=== PATIENT | female | born 1945 | race Caucasian/White ===

== ENCOUNTER 2017-07-01 22:21 | Emergency (ER) | payer MEDICARE, SELFPAY ==
[2017-07-01 22:35] VITALS: BP 191/100; PULSE 82; RESP 18; TEMP 36.4; O2SAT 97; BMI 27.8
[2017-07-01 22:59] LABS: Basophils # 0.1 K/mm3 (0-0.2); Basophils % 0.9 % (0.1-2.0); Eosinophils # 1.2 K/mm3 (0.0-0.4); Hematocrit 43.7 % (37.0-47.0); Hemoglobin 14.4 g/dL (12.2-16.2); Lymphocytes # 4.5 K/mm3 (0.7-4.5); Mean Corpuscular Hemoglobin 30.2 pg (27.0-31.2); Mean Corpuscular Volume 91.5 fl (81-99); Mean Platelet Volume 8.1 fl (7.4-10.4); Monocytes # 0.5 K/mm3 (0.1-1.0); Monocytes % 4.5 % (1.7-9.3); Neutrophils # 4.4 K/mm3 (1.8-7.8); Neutrophils % 41.6 % (37.0-80.0); Platelet Count 334 K/mm3 (142-424); Red Blood Count 4.78 M/mm3 (4.20-5.40); Red Cell Distribution Width 12.4 % (11.5-17.5); White Blood Count 10.7 K/mm3 (4.8-10.8)
--- NOTE | 2017-07-01 23:03 | HMH.EDHA ---
ED Disposition Clinical Impression: Headache Qualifiers: Headache type: unspecified Headache chronicity pattern: acute headache Intractability: not intractable Qualified Code(s): R51 - Headache Disposition: Home, Self-Care Condition on Discharge: Good Instructions: DI for Headache Additional Instructions: see pcp for follow up Referrals: Duglas Love [Primary Care Provider] - - Critical Care Critical Care Time: No Attestation: On 07/01/17, the high probability of a clinically significant, sudden or life threatening deterioration of the following system(s) required my full and direct attention, intervention and personal management. The time I documented below is in addition to time spent performing reported procedures but includes the following listed in this critical care notation. Medical Decision Making - Medical Records Medical records reviewed: Yes: I reviewed the patient's medical records. Vital Signs: 07/01/17 22:35 07/01/17 23:06 07/01/17 23:37 Temperature 97.6 F Temperature Source Oral Pulse Rate [Right Brachial] 82 67 65 Respiratory Rate 18 18 18 Blood Pressure [Right Arm] 191/100 181/93 180/84 Blood Pressure Mean [Right Arm] 130 122 116 Blood Pressure Source [Right Arm] Automatic Cuff Automatic Cuff Automatic Cuff Blood Pressure Position [Right Arm] Supine Supine Supine 02 Sat by Pulse Oximetry 97 97 96 Oxygen Delivery Method Room Air Room Air Room Air 07/02/17 00:29 07/02/17 00:50 Temperature Temperature Source Pulse Rate [Right Brachial] 66 Respiratory Rate 16 Blood Pressure [Right Arm] 117/67 105/66 Blood Pressure Mean [Right Arm] 83 79 Blood Pressure Source [Right Arm] Automatic Cuff Automatic Cuff Blood Pressure Position [Right Arm] Supine Supine 02 Sat by Pulse Oximetry 95 Oxygen Delivery Method Room Air - Lab Data Lab Results 07/01/17 22:45: WBC 10.7, RBC 4.78, Hgb 14.4, Hct 43.7, MCV 91.5, MCH 30.2, MCHC 33.0, RDW 12.4, Plt Count 334, MPV 8.1, Neut % (Auto) 41.6, Lymph % (Auto) 42.0, [place] % (Auto) 4.5, Eos % (Auto) 11.0, Baso % (Auto) 0.9, Neut # (Auto) 4.4, Lymph # (Auto) 4.5, [place] # (Auto) 0.5, Eos # (Auto) 1.2 H, Baso # (Auto) 0.1 07/01/17 22:45: Sodium 139, Potassium 3.9, Chloride 102, Carbon Dioxide 26, Anion Gap 14.9, BUN 10, Creatinine 0.69, Estimated Creat Clear 58, Estimated GFR 83, Est GFR ( Amer) 101, Glucose 116 H, Calcium 9.3, Total Bilirubin 0.3, AST 13 L, ALT 26, Alkaline Phosphatase 129 H, Total Protein 7.7, Albumin 4.0, Globulin 3.7 H, Albumin/Globulin Ratio 1.1 07/01/17 22:45: Total Creatine Kinase 44, CK-MB (CK-2) < 0.5, CK-MB (CK-2) Rel Index 1.1, Troponin I < 0.02 Result diagrams: 07/01/17 22:45 07/01/17 22:45 Orders (Tests/Meds): ED MEDICATIONS Discontinued Medications Generic Name Dose Route Start Last Admin Trade Name Darcy PRN Reason Stop Dose Admin Clonidine HCl 0.1 mg 07/01/17 23:05 07/01/17 23:08 Clonidine 0.1mg Tablet PO 07/01/17 23:06 0.1 mg ONCE ONE Administration ORDERS Category Date Time Status ECG Request by /David Stat Y 07/01/17 22:41 Ordered - Killian Inquiry Pt receiving controlled substance: No Headache HPI - General Chief Complaint: Headache Stated Complaint: High blood pressure,headache Time Seen by Provider: 07/01/17 23:03 Mode of Arrival: Family Vehicle Source of Information: Patient, Relative, Medical Record Limitations: No Limitations Description of Symptoms (Recalled from ER Triage Doc. by RN): C/O HEADACHE X SEVERAL WEEKS AND HTN. STATSE SHE TOOK METOPROLOL XL 25 MG PO X 3 TONIGHT IN ATTEMPT TO BRING BLOOD PRESSURE DOWN - History of Present Illness HPI Narrative: elevated bp with tay at home Complaint: headache Onset (ago): hour(s) Onset description: gradual Location: temporal Severity: moderate Quality: aching Relieving factors: nothing Exacerbating factors: none Context: occurred at rest Associated symptoms: none - Related Data Home Medications
[2017-07-01 23:06] VITALS: BP 181/93; PULSE 67; RESP 18; O2SAT 97
--- NOTE | 2017-07-01 23:06 | ED_ITS ---
ED Disposition Clinical Impression: Headache Qualifiers: Headache type: unspecified Headache chronicity pattern: acute headache Intractability: not intractable Qualified Code(s): R51 - Headache Disposition: Home, Self-Care Condition on Discharge: Good Instructions: DI for Headache Additional Instructions: see pcp for follow up Referrals: Duglas Love [Primary Care Provider] - - Critical Care Critical Care Time: No Attestation: On 07/01/17, the high probability of a clinically significant, sudden or life threatening deterioration of the following system(s) required my full and direct attention, intervention and personal management. The time I documented below is in addition to time spent performing reported procedures but includes the following listed in this critical care notation. Medical Decision Making - Medical Records Medical records reviewed: Yes: I reviewed the patient's medical records. Vital Signs: 07/01/17 22:35 07/01/17 23:06 07/01/17 23:37 Temperature 97.6 F Temperature Source Oral Pulse Rate [Right Brachial] 82 67 65 Respiratory Rate 18 18 18 Blood Pressure [Right Arm] 191/100 181/93 180/84 Blood Pressure Mean [Right Arm] 130 122 116 Blood Pressure Source [Right Arm] Automatic Cuff Automatic Cuff Automatic Cuff Blood Pressure Position [Right Arm] Supine Supine Supine 02 Sat by Pulse Oximetry 97 97 96 Oxygen Delivery Method Room Air Room Air Room Air 07/02/17 00:29 07/02/17 00:50 Temperature Temperature Source Pulse Rate [Right Brachial] 66 Respiratory Rate 16 Blood Pressure [Right Arm] 117/67 105/66 Blood Pressure Mean [Right Arm] 83 79 Blood Pressure Source [Right Arm] Automatic Cuff Automatic Cuff Blood Pressure Position [Right Arm] Supine Supine 02 Sat by Pulse Oximetry 95 Oxygen Delivery Method Room Air - Lab Data Lab Results 07/01/17 22:45: WBC 10.7, RBC 4.78, Hgb 14.4, Hct 43.7, MCV 91.5, MCH 30.2, MCHC 33.0, RDW 12.4, Plt Count 334, MPV 8.1, Neut % (Auto) 41.6, Lymph % (Auto) 42.0, [place] % (Auto) 4.5, Eos % (Auto) 11.0, Baso % (Auto) 0.9, Neut # (Auto) 4.4 , Lymph # (Auto) 4.5, [place] # (Auto) 0.5, Eos # (Auto) 1.2 H, Baso # (Auto) 0.1 07/01/17 22:45: Sodium 139, Potassium 3.9, Chloride 102, Carbon Dioxide 26, Anion Gap 14.9, BUN 10, Creatinine 0.69, Estimated Creat Clear 58, Estimated GFR 83, Est GFR ( Amer) 101, Glucose 116 H, Calcium 9.3, Total Bilirubin 0.3, AST 13 L, ALT 26, Alkaline Phosphatase 129 H, Total Protein 7.7, Albumin 4.0, Globulin 3.7 H, Albumin/Globulin Ratio 1.1 07/01/17 22:45: Total Creatine Kinase 44, CK-MB (CK-2) < 0.5, CK-MB (CK-2) Rel Index 1.1, Troponin I < 0.02 Result diagrams: 07/01/17 22:45 07/01/17 22:45 Orders (Tests/Meds): ED MEDICATIONS Discontinued Medications Generic Name Dose Route Start Last Admin Trade Name Darcy PRN Reason Stop Dose Admin Clonidine HCl 0.1 mg 07/01/17 23:05 07/01/17 23:08 Clonidine 0.1mg Tablet PO 07/01/17 23:06 0.1 mg ONCE ONE Administration ORDERS Category Date Time Status ECG Request by /David Stat Y 07/01/17 22:41 Ordered - Killian Inquiry Pt receiving controlled substance: No Headache HPI - General Chief Complaint: Headache Stated Complaint: High blood pressure,headache
[2017-07-01 23:17] LABS: Alanine Aminotransferase 26 U/L (12-78); Albumin/Globulin Ratio 1.1 (1.1-1.8); Alkaline Phosphatase 129 U/L (46-116); Anion Gap 14.9 mEq/L (5-15); Aspartate Amino Transferase 13 U/L (15-37); Bilirubin,Total 0.3 mg/dL (0.2-1.0); Blood Urea Nitrogen 10 mg/dL (7-18); Carbon Dioxide 26 mmol/L (21.0-32.0); Chloride 102 mmol/L (98-107); Creatinine Clearance Estimated 58 mL/min (0-300); Creatinine,Serum 0.69 mg/dL (0.55-1.02); Estimated Glomerular Filt Rate 83 ml/min (>60); GFR (African American) 101 ML/MIN (>60); Globulin 3.7 gm/dl (1.3-3.2); Glucose 116 mg/dL (74-106); Potassium 3.9 mmoL/L (3.5-5.1); Sodium 139 mmol/L (136-145); Total Protein,Serum 7.7 gm/dL (6.4-8.2)
[2017-07-01 23:20] LABS: Calcium 9.3 mg/dL (8.5-10.1)
[2017-07-01 23:26] LABS: Creatine Kinase 44 U/L (26-192); Troponin I < 0.02 ng/ml (0.00-0.06)
[2017-07-01 23:27] LABS: CKMB Relative Index 1.1 U/L (0-4.0); Creatine Kinase MB < 0.5 mg/ml (0.0-3.6)
[2017-07-01 23:37] VITALS: BP 180/84; PULSE 65; RESP 18; O2SAT 96
[2017-07-02 00:29] VITALS: BP 117/67
[2017-07-02 00:50] VITALS: BP 105/66; PULSE 66; RESP 16; O2SAT 95
[2017-07-02 01:16] VITALS: BP 106/69; PULSE 66; RESP 16; O2SAT 96
[2017-07-02 01:20] VITALS: BP 106/69; PULSE 66; RESP 16; O2SAT 96
== END 2017-07-02 01:25 | disposition home or self-care (01) ==
PROVIDERS: Emergency Provider Emergency Medicine; Family Provider Family Medicine; PCP Internal Medicine
DX: R51 Headache (principal); Z79.899 Other long term (current) drug therapy; Z88.5 Allergy status to narcotic agent
CPT/HCPCS: 80053; 82550; 82553; 84484; 85025; 93005; 93041; 99284

== ENCOUNTER 2021-09-16 13:27 | Outpatient (RCR) | payer MEDICARE, SELFPAY | END 2021-11-14 14:30 | disposition home or self-care (01) | LOC: PT 13:27 | PROVIDERS: Visit Provider Clinical Nurse Specialist Adult Health | DX: I25.10 Atherosclerotic heart disease of native coronary artery without angina pectoris (principal); R94.39 Abnormal result of other cardiovascular function study | CPT/HCPCS: 93798 ==

== ENCOUNTER 2021-10-29 11:38 | Emergency (ER) | payer MEDICARE, SELFPAY ==
--- NOTE | 2021-10-29 11:36 | ECG_ITS ---
APPROVED REPORT Exam: Resting ECG HR:79 bpm ECG Measurements Heart Rate 79 AXES IN 180 P 61 QRSd 90 QRS 45 QT 379 T 73 QTc 414 Conclusion SINUS RHYTHM NORMAL ECG UNCONFIRMED REPORT Electronically signed by : Cheikh Bryant MD 10/31/2021 10:33:07
[2021-10-29 11:38] VITALS: BP 151/75; PULSE 79; RESP 18; TEMP 36.6; O2SAT 96; BMI 26.1
--- NOTE | 2021-10-29 11:44 | PC.NURSE ---
ED MD at
--- NOTE | 2021-10-29 11:45 | PC.NURSE ---
HARVINDER STILL at
--- NOTE | 2021-10-29 11:50 | XR_ITS ---
PROCEDURE INFORMATION: Exam: XR Chest Exam date and time: 10/29/2021 12:23 PM Age: 76 years old Clinical indication: Pain; Chest pressure; Additional info: Chest pain TECHNIQUE: Imaging protocol: XR of the chest. Views: 1 view. COMPARISON: No relevant prior studies available. FINDINGS: Lungs: Emphysematous change and interstitial prominence. Pleural spaces: No pleural effusion. Heart/Mediastinum: Normal configuration of the heart. Bones/joints: Degenerative change. IMPRESSION: Emphysematous change and interstitial prominence.
[2021-10-29 11:53] LABS: MANUAL DIFFERENTIAL MANUAL DIFFERENTIAL (MANUAL DIFF)
[2021-10-29 12:00] VITALS: BP 135/65; PULSE 74; RESP 14; O2SAT 98
[2021-10-29 12:03] LABS: Basophils # 0.2 K/mm3 (0-0.2); Eosinophils # 0.9 K/mm3 (0.0-0.4); Eosinophils % 9.9 % (0.1-12.0); Hematocrit 38.4 % (37.0-47.0); Hemoglobin 12.7 g/dL (12.2-16.2); Lymphocytes # 2.2 K/mm3 (0.7-4.5); Lymphocytes % 24.1 % (10-50); Mean Corpuscular Hemoglobin 31.6 pg (27.0-31.2); Mean Corpuscular Volume 95.6 fl (81-99); Mean Platelet Volume 7.9 fl (7.4-10.4); Monocytes # 0.4 K/mm3 (0.1-1.0); Monocytes % 4.6 % (1.7-9.3); Neutrophils # 5.4 K/mm3 (1.8-7.8); Neutrophils % 59.4 % (37.0-80.0); Platelet Count 325 K/mm3 (142-424); Red Blood Count 4.02 M/mm3 (4.20-5.40); Red Cell Distribution Width 13.1 % (11.5-17.5); White Blood Count 9.1 K/mm3 (4.8-10.8)
[2021-10-29 12:12] LABS: Activated Partial Thrombo Time 23.6 seconds (22.8-30.6); INR 0.92 (0.9-1.1); Prothrombin Time 10.5 seconds (10.1-12.5)
[2021-10-29 12:15] LABS: Anion Gap 13.2 mEq/L (5-15); Blood Urea Nitrogen 17 mg/dl (7-17); Calcium 8.8 mg/dl (8.4-10.2); Carbon Dioxide 26 mmol/L (22.0-30.0); Chloride 101 mmol/L (98-107); Creatinine Clearance Estimated 51 mL/min (50-200); Estimated Glomerular Filt Rate 70 ml/min (>60); GFR (African American) 84 ML/MIN (>60); Glucose 202 mg/dl (74-100); Potassium 4.2 mmoL/L (3.5-5.1); Sodium 136 mmol/L (136-145)
[2021-10-29 12:15] LABS: Alanine Aminotransferase 25 U/L (12-78); Alkaline Phosphatase 95 U/L (38-126); Aspartate Amino Transferase 42 U/L (14-36); Bilirubin,Unconjugated 0.3 mg/dL (0.0-1.1); Total Protein,Serum 6.9 g/dl (6.3-8.2)
[2021-10-29 12:17] LABS: Bilirubin,Total < 0.1 mg/dl (0.2-1.3)
[2021-10-29 12:30] VITALS: BP 149/73; PULSE 76; RESP 14; O2SAT 95
[2021-10-29 12:30] LABS: Eosinophils % 8 % (0-3); Lymphocytes % 30 % (10-50); Monocytes % 5 % (2-9); Neutrophils % 57 % (42-76); Platelet Estimate Normal; RBC Morphology Normal; Total Cells Counted 100
--- NOTE | 2021-10-29 12:38 | PC.NURSE ---
contacted lab to check on status of troponin, spoke with Brii. States it was not received, reports she will get is running now, will be approx 20 minutes
[2021-10-29 12:51] LABS: Bilirubin,Direct 0.1 mg/dl (0.0-0.4); Bilirubin,Indirect 0.2 mg/dL (0.0-0.9)
[2021-10-29 13:00] VITALS: BP 153/75; PULSE 74; RESP 13; O2SAT 93
[2021-10-29 13:03] LABS: Troponin I < 0.01 ng/ml (0.00-0.034)
[2021-10-29 13:30] VITALS: BP 155/79; PULSE 74; RESP 16; O2SAT 94
--- NOTE | 2021-10-29 14:06 | HMH.EDCP ---
ED Disposition Clinical Impression: Chest pain Disposition: Home, Self-Care Condition on Discharge: Good Instructions: DI for Atypical Chest Pain Additional Instructions: Please follow-up with your pipe line walker in 2 to 3 days. You will require stress test and repeat ECHO if symptoms persist. Please return if your symptoms recur. Please also return for difficulty breathing, reoccurring chest pain or any other concerns. Referrals: Provider,Referral, [Primary Care Provider] - - Critical Care Critical Care Time: No Attestation: On 10/29/21, the high probability of a clinically significant, sudden or life threatening deterioration of the following system(s) required my full and direct attention, intervention and personal management. The time I documented below is in addition to time spent performing reported procedures but includes the following listed in this critical care notation. Medical Decision Making - Medical Records Medical records reviewed: Yes: I reviewed the patient's medical records. - Killian Inquiry Pt receiving controlled substance: No Vital Signs: 10/29/21 11:38 10/29/21 12:00 10/29/21 12:30 Temperature 97.9 F Temperature Source Oral Pulse Rate 74 76 Pulse Rate [Right Radial] 79 Respiratory Rate 18 14 14 Blood Pressure 135/65 149/73 H Blood Pressure [Right Arm] 151/75 H Blood Pressure Mean [Right Arm] 100 Blood Pressure Source Automatic Cuff Automatic Cuff Blood Pressure Source [Right Arm] Automatic Cuff Blood Pressure Position Sitting Sitting Blood Pressure Position [Right Arm] Sitting 02 Sat by Pulse Oximetry 96 98 95 Oxygen Delivery Method Room Air Room Air Room Air 10/29/21 13:00 10/29/21 13:30 10/29/21 15:01 Temperature 97.9 F Temperature Source Oral Pulse Rate 74 74 71 Pulse Rate [Right Radial] Respiratory Rate 13 16 17 Blood Pressure 153/75 H 155/79 H 154/80 H Blood Pressure [Right Arm] Blood Pressure Mean [Right Arm] Blood Pressure Source Automatic Cuff Automatic Cuff Blood Pressure Source [Right Arm] Blood Pressure Position Sitting Sitting Blood Pressure Position [Right Arm] 02 Sat by Pulse Oximetry 93 L 94 L Oxygen Delivery Method Room Air Room Air Room Air - Lab Data Lab results reviewed: Yes: I reviewed the patient's lab results. Lab Results 10/29/21 11:41: WBC 9.1, RBC 4.02 L, Hgb 12.7, Hct 38.4, MCV 95.6, MCH 31.6 H, MCHC 33.0, RDW 13.1, Plt Count 325, MPV 7.9, Neut % (Auto) 59.4, Lymph % (Auto) 24.1, [place] % (Auto) 4.6, Eos % (Auto) 9.9, Baso % (Auto) 2.0, Neut # (Auto) 5.4, Lymph # (Auto) 2.2, [place] # (Auto) 0.4, Eos # (Auto) 0.9 H, Baso # (Auto) 0.2, Total Counted 100, Neutrophils % (Manual) 57, Lymphocytes % (Manual) 30, Monocytes % (Manual) 5, Eosinophils % (Manual) 8 H, Platelet Estimate Normal, RBC Morphology Normal 10/29/21 11:41: PT 10.5, INR 0.92, APTT 23.6 10/29/21 11:41: Troponin I < 0.01 10/29/21 11:41: Total Bilirubin < 0.1 L, Direct Bilirubin 0.1, Conjugated Bilirubin 0.0, Indirect Bilirubin 0.2, Unconjugated Bilirubin 0.3, AST 42 H, ALT 25, Alkaline Phosphatase 95, Total Protein 6.9, Albumin 4.0 10/29/21 11:51: Sodium 136, Potassium 4.2, Chloride 101, Carbon Dioxide 26, Anion Gap 13.2, BUN 17, Creatinine 0.80, Estimated Creat Clear 51, Estimated GFR 70, Est GFR ( Amer) 84, Glucose 202 H, Calcium 8.8 Result diagrams: 10/29/21 11:41 10/29/21 11:51 Orders (Tests/Meds): ED MEDICATIONS Discontinued Medications Generic Name Dose Route Start Last Admin Trade Name Freq PRN Reason Stop Dose Admin Sodium Chloride 10 ml 10/29/21 11:51 Sodium Chloride 0.9% 10ml Flush Syringe IV 11/28/21 11:50 NEEDED PRN Maintain IV Site Medical Decision Narrative: Mrs. Paris Anderson is a 76-year-old female with past medical history for CAD s/p PCI stents (08/2021), HTN presenting to the emergency department for chest pain which has resolved prior to arrival. Patient taken aspirin prior to arrival. Beds
[2021-10-29 15:01] VITALS: BP 154/80; PULSE 71; RESP 17; TEMP 36.6; O2SAT 97
== END 2021-10-29 15:02 | disposition home or self-care (01) ==
PROVIDERS: Emergency Provider Student in an Organized Health Care Education/Training Program
DX: R07.89 Other chest pain (principal); R06.09 Other forms of dyspnea; I25.10 Atherosclerotic heart disease of native coronary artery without angina pectoris; I10 Essential (primary) hypertension; Z79.899 Other long term (current) drug therapy
CPT/HCPCS: 71045; 80048; 80076; 84484; 85007; 85014; 85018; 85048; 85049; 85610; 85730; 93005; 99283

== ENCOUNTER 2022-12-10 02:55 | Emergency (ER) | payer MEDICARE, SELFPAY ==
[2022-12-10] VITALS (8 sets, daily range): BP systolic 147–191; BP diastolic 80–101; PULSE 91–119; RESP 16–20; TEMP 36.6; O2SAT 95–97; BMI 25.7
--- NOTE | 2022-12-10 03:09 | ECG_ITS ---
APPROVED REPORT Exam: Resting ECG HR:113 bpm ECG Measurements Heart Rate 113 AXES WA 173 P 72 QRSd 74 QRS 21 QT 342 T 69 QTc 409 Conclusion SINUS TACHYCARDIA ABNORMAL RHYTHM ECG UNCONFIRMED REPORT Electronically signed by : Cheikh Bryant MD 12/10/2022 21:14:42
--- NOTE | 2022-12-10 03:14 | XR_ITS ---
PROCEDURE INFORMATION: Exam: XR Chest Exam date and time: 12/10/2022 3:30 AM Age: 77 years old Clinical indication: Other: Back pain TECHNIQUE: Imaging protocol: Radiologic exam of the chest. Views: 2 views. COMPARISON: CR XR CHEST PORTABLE 10/29/2021 12:23 PM FINDINGS: Lungs: Unremarkable. No consolidation. Pleural spaces: Unremarkable. No pleural effusion. No pneumothorax. Heart/Mediastinum: Unremarkable. No cardiomegaly. Bones/joints: Unremarkable. IMPRESSION: No acute findings.
[2022-12-10 03:27] LABS: Basophils # 0.1 K/mm3 (0-0.2); Basophils % 0.5 % (0.1-2.0); Eosinophils # 1.1 K/mm3 (0.0-0.4); Hematocrit 41.1 % (37.0-47.0); Hemoglobin 13.2 g/dL (12.2-16.2); Lymphocytes # 3.5 K/mm3 (0.7-4.5); Lymphocytes % 34.7 % (10-50); Mean Corpuscular HGB Conc 32.2 g/dL (31.8-35.4); Mean Corpuscular Hemoglobin 29.5 pg (27.0-31.2); Mean Corpuscular Volume 91.9 fl (81-99); Mean Platelet Volume 7.6 fl (7.4-10.4); Monocytes # 0.6 K/mm3 (0.1-1.0); Monocytes % 5.4 % (1.7-9.3); Neutrophils # 4.9 K/mm3 (1.8-7.8); Neutrophils % 48.4 % (37.0-80.0); Platelet Count 405 K/mm3 (142-424); Red Blood Count 4.48 M/mm3 (4.20-5.40); Red Cell Distribution Width 12.5 % (11.5-17.5); White Blood Count 10.2 K/mm3 (4.8-10.8)
[2022-12-10 03:29] LABS: Alanine Aminotransferase 23 U/L (12-78); Albumin Level 4.2 g/dl (3.5-5.0); Albumin/Globulin Ratio 1.4 (1.1-1.8); Alkaline Phosphatase 113 U/L (38-126); Aspartate Amino Transferase 31 U/L (14-36); Bilirubin,Total 0.4 mg/dl (0.2-1.3); Blood Urea Nitrogen 19 mg/dl (7-17); Calcium 9.1 mg/dl (8.4-10.2); Carbon Dioxide 25 mmol/L (22.0-30.0); Chloride 101 mmol/L (98-107); Creatinine Clearance Estimated 50 mL/min (50-200); Estimated Glomerular Filt Rate 61 ml/min (>60); GFR (African American) 73 ML/MIN (>60); Glucose 169 mg/dl (74-100); Sodium 134 mmol/L (136-145); Total Protein,Serum 7.2 g/dl (6.3-8.2)
[2022-12-10 03:34] LABS: C-Reactive Protein 1.6 mg/L (0-4)
[2022-12-10 03:44] LABS: Troponin I < 0.01 ng/ml (0.00-0.034)
[2022-12-10 03:48] LABS: Procalcitonin 0.062 ng/mL (0.0-2.0)
--- NOTE | 2022-12-10 03:50 | CT_ITS ---
PROCEDURE INFORMATION: Exam: CT Thoracic Spine Without Contrast Exam date and time: 12/10/2022 4:25 AM Age: 77 years old Clinical indication: Injury or trauma; Fall; Additional info: Pain TECHNIQUE: Imaging protocol: Computed tomography of the thoracic spine without contrast. Radiation optimization: All CT scans at this facility use at least one of these dose optimization techniques: automated exposure control; mA and/or kV adjustment per patient size (includes targeted exams where dose is matched to clinical indication); or iterative reconstruction. REPORTING DATA: Count of CT and Cardiac NM exams in prior 12 months: This patient has received 0 known CTs and 0 known cardiac nuclear medicine studies in the 12 months prior to the current study. COMPARISON: CT CERVICAL SPINE WO CON 12/10/2022 4:23 AM FINDINGS: Bones/joints: There is a compression fracture of T10. There is a proximally 50% loss of height. There is some mild retropulsion of fragments posteriorly narrowing the canal. The patient is diffusely osteopenic. Soft tissues: Unremarkable. IMPRESSION: T10 compression fracture with 50% loss of height some mild retropulsion of fragments noted, consider MRI for further evaluation.
--- NOTE | 2022-12-10 03:50 | XR_ITS ---
PROCEDURE INFORMATION: Exam: XR Pelvis Exam date and time: 12/10/2022 4:24 AM Age: 77 years old Clinical indication: Injury or trauma; Fall; Blunt trauma (contusions or hematomas); Does not apply; Pelvic region TECHNIQUE: Imaging protocol: Radiologic exam of the pelvis. Views: 1 or 2 view. COMPARISON: No relevant prior studies available. FINDINGS: Bones/joints: Degenerative changes in the lumbar spine. Normal alignment. No acute fractures. Soft tissues: Unremarkable. Intraperitoneal space: There are vascular calcifications in the pelvis. IMPRESSION: No acute injury.
--- NOTE | 2022-12-10 03:50 | CT_ITS ---
PROCEDURE INFORMATION: Exam: CT Cervical Spine Without Contrast Exam date and time: 12/10/2022 4:23 AM Age: 77 years old Clinical indication: Injury or trauma; Fall TECHNIQUE: Imaging protocol: Computed tomography of the cervical spine without contrast. Radiation optimization: All CT scans at this facility use at least one of these dose optimization techniques: automated exposure control; mA and/or kV adjustment per patient size (includes targeted exams where dose is matched to clinical indication); or iterative reconstruction. REPORTING DATA: Count of CT and Cardiac NM exams in prior 12 months: This patient has received 0 known CTs and 0 known cardiac nuclear medicine studies in the 12 months prior to the current study. COMPARISON: CT HEAD/BRAIN WO CON 12/10/2022 4:21 AM FINDINGS: Bones/joints: Diffuse cervical spondylosis is noted. Hypertrophic changes of the facet present bilaterally. Discs/Spinal canal/Neural foramina: Narrowing of multiple intervertebral disc spaces are seen. Moderate neural foraminal narrowing is also noted. Lungs: Lung apices are normal. Vasculature: No obvious traumatic injury is seen. Carotid atherosclerosis is present. Soft tissues: Unremarkable. IMPRESSION: 1. No evidence of acute traumatic injury. 2. Diffuse cervical spondylosis. 3. Carotid atherosclerosis is present.
--- NOTE | 2022-12-10 03:50 | CT_ITS ---
PROCEDURE INFORMATION: Exam: CT Head Without Contrast Exam date and time: 12/10/2022 4:21 AM Age: 77 years old Clinical indication: Injury or trauma; Fall TECHNIQUE: Imaging protocol: Computed tomography of the head without contrast. Radiation optimization: All CT scans at this facility use at least one of these dose optimization techniques: automated exposure control; mA and/or kV adjustment per patient size (includes targeted exams where dose is matched to clinical indication); or iterative reconstruction. REPORTING DATA: Count of CT and Cardiac NM exams in prior 12 months: This patient has received 0 known CTs and 0 known cardiac nuclear medicine studies in the 12 months prior to the current study. COMPARISON: No relevant prior studies available. FINDINGS: Brain: Age appropriate small vessel ischemic change. No evidence of intracranial hemorrhage, mass effect, midline shift or extra-axial fluid collections. Midline structures are normal. Mtz-white matter differentiation is normal. Cerebral ventricles: No ventriculomegaly. Paranasal sinuses: Visualized sinuses are unremarkable. No fluid levels. Mastoid air cells: Visualized mastoid air cells are well aerated. Bones/joints: Unremarkable. No acute fracture. Soft tissues: Unremarkable. IMPRESSION: No acute intracranial abnormality.
[2022-12-10 04:08] LABS: Erythrocyte Sedimentation Rate 42 mm/hr (0-30)
--- NOTE | 2022-12-10 05:23 | PC.NURSE ---
Called [facility] and spoke with Linnea in Radiology. She advised she will fax over the pts previous test results from their facility. MIRIAN
[2022-12-10 05:56] LABS: Microscopic, Urine URINE MICROSCOPIC (MICROSCOPIC)
[2022-12-10 06:00] LABS: Appearance,Urine CLEAR (Clear); Bilirubin,Urine Negative (Negative); Blood, Urine Negative (Negative); Color,Urine YELLOW (Yellow); Glucose,Urine (UA) Negative (Negative); Ketones,Urine Negative (Negative); Leukocyte Esterase,Urine Negative (Negative); Nitrate,Urine Negative (Negative); Protein,Urine Negative (Negative); Urobilinogen,Urine 0.2 EU/dl (0.2)
--- NOTE | 2022-12-10 06:10 | HMH.EDBACK ---
Discharge Plan Disposition Chief Complaint: Back Pain/Injury Prescriptions Prescriptions: No Action metoprolol succinate 25 MG tablet extended release 24 hr 25 mg PO DAILY sertraline [Zoloft] 25 MG tablet 50 mg PO DAILY cyclobenzaprine 10 mg tablet 10 mg PO DAILY ibuprofen 800 mg tablet 800 mg PO Q8 clopidogrel 75 mg tablet 75 mg PO DAILYDM trazodone 100 mg tablet 100 mg PO HS omeprazole 20 mg capsule,delayed release(DR/EC) 20 mg PO DAILY losartan 100 mg tablet 100 mg PO DAILY metformin 500 mg tablet extended release 24 hr 500 mg PO DAILY rosuvastatin 10 mg tablet 10 mg PO HS Ozempic 0.25 mg or 0.5 mg (2 mg/3 mL) pen injector 0.25 mg SQ WEEKLY methocarbamol 500 mg tablet 500 mg PO DAILY Referrals Follow up/Referrals: Duglas Love MD [Primary Care Provider] - See instructions Darío Martinez MD [Referring] - See instructions Clinical Impressions Clinical Impression: Compression fx, thoracic spine, Acute on chronic urinary retention, Osteopenia Instructions Patient Instructions: Vertebral Compression Fracture Discharge ED Provider: Perry (ED)Ortega Back Pain HPI General Chief Complaint: Back Pain/Injury Stated Complaint: Middle back pain no injury Time Seen by Provider: 12/10/22 05:00 Mode of Arrival: Wheelchair Source of Information: Patient, Relative and Medical Record Limitations: No Limitations Description of Symptoms (Recalled from ER Triage Doc. by RN): pt c/o mid thoracic pain x 1 month. pt states seen pcp in beginging of november and recieved muscle relaxer and then has seen chiropractor 3 times for her back pain. pt also states she had several falls recently History of Present Illness HPI Narrative: pt with back pain over the last few weeks - occ falls - has seen pcp and on nsaif and mm relaxers - pt with no urinary ncont or cauda equina sx with hx of urinary retention - no rash Complaint: back pain and back injury Onset (ago): hour(s) Duration: intermittent Location: thoracic spine Associated symptoms: denies other symptoms Related Data Home Medications Medication Instructions Recorded Confirmed metoprolol succinate 25 mg 25 mg PO DAILY HTN 07/01/17 12/10/22 tablet,extended release 24 hr sertraline 25 mg tablet (Zoloft) 50 mg PO DAILY Depression 07/01/17 12/10/22 clopidogrel 75 mg tablet 75 mg PO DAILYDM Blood Thinner 12/10/22 12/10/22 cyclobenzaprine 10 mg tablet 10 mg PO DAILY spasms 12/10/22 12/10/22 ibuprofen 800 mg tablet 800 mg PO Q8 Pain 12/10/22 12/10/22 losartan 100 mg tablet 100 mg PO DAILY High Blood Pressure 12/10/22 12/10/22 metformin 500 mg tablet,extended 500 mg PO DAILY Diabetes 12/10/22 12/10/22 release 24 hr methocarbamol 500 mg tablet 500 mg PO DAILY Pain 12/10/22 12/10/22 omeprazole 20 mg capsule,delayed 20 mg PO DAILY gerd 12/10/22 12/10/22 release rosuvastatin 10 mg tablet 10 mg PO HS High Cholesterol 12/10/22 12/10/22 semaglutide 0.25 mg or 0.5 mg (2 0.25 mg SQ WEEKLY Diabetes 12/10/22 12/10/22 mg/3 mL) subcutaneous pen injector (CLIPPATE) trazodone 100 mg tablet 100 mg PO HS sleep 12/10/22 12/10/22 Allergies Allergy/AdvReac Type Severity Reaction Status Date / Time acetaminophen Allergy Verified 07/01/17 22:31 [From Darvocet-N] codeine Allergy Verified 07/01/17 22:31 meperidine [From Demerol] Allergy Verified 07/01/17 22:31 morphine Allergy Verified 07/01/17 22:31 propoxyphene Allergy Verified 07/01/17 22:31 [From Darvocet-N] [facility] Disclaimer: The information contained in this section may have been updated after the patient was seen, as this information can be updated by other users. Social History Smoking Status: Never smoker alcohol intake: never current occupational status: retired Travel in the last 8 weeks: None ROS Obtained: Yes All systems reviewed & no additional complaints except as documented Physical Exa
[2022-12-10 06:32] LABS: Bacteria,Urine Trace /lpf
--- NOTE | 2022-12-10 07:00 | PC.NURSE ---
rodriguez catheter removed. 900ml clear yellow urine in meter bag. patient tolerated well.
--- NOTE | 2022-12-10 07:24 | PC.NURSE ---
Rounded on patient; patient is resting on ED stretcher with warm blankets. She does not want a pillow at this time, lights out for comfort. Call velarde within reach
--- NOTE | 2022-12-10 07:28 | PC.NURSE ---
pt resting in bed, call velarde in reach. lights on in room per pts request. Pt IV tylenol infusing per IV pump at this time for pain.
--- NOTE | 2022-12-10 08:05 | PC.NURSE ---
PIV removed. Attempted to contract Jairo Anderson (son) @ [phone] and [phone], however unsuccessful.
== END 2022-12-10 08:43 | disposition home or self-care (01) ==
PROVIDERS: Emergency Provider Emergency Medicine; PCP Internal Medicine
DX: S22.070A Wedge compression fracture of T9-T10 vertebra, initial encounter for closed fracture (principal); R33.9 Retention of urine, unspecified; M85.80 Other specified disorders of bone density and structure, unspecified site; M54.6 Pain in thoracic spine
CPT/HCPCS: 51702; 70450; 71046; 72125; 72128; 72170; 80053; 81001; 84145; 84484; 85025; 85651; 86140; 93005; 96361; 96374; 96375; 99285; J0131

== ENCOUNTER → 2022-12-29 16:38 | Outpatient (CLI) | payer MEDICARE, SELFPAY ==
[2022-12-29 17:26] LABS: Microscopic, Urine URINE MICROSCOPIC (MICROSCOPIC)
[2022-12-29 17:36] LABS: Appearance,Urine CLEAR (Clear); Bilirubin,Urine Negative (Negative); Blood, Urine TRACE-I (Negative); Color,Urine YELLOW (Yellow); Glucose,Urine (UA) TRACE (Negative); Ketones,Urine Negative (Negative); Leukocyte Esterase,Urine 1+ (Negative); Nitrate,Urine Negative (Negative); PH,Urine 5.5 (5.0-8.5); Protein,Urine Negative (Negative); Urobilinogen,Urine 0.2 EU/dl (0.2)
[2022-12-29 18:00] LABS: Bacteria,Urine Trace /lpf; RBC,Urine Occasional #/hpf (0-3)
== END ==
DX: C50.311 Malignant neoplasm of lower-inner quadrant of right female breast (principal); R82.90 Unspecified abnormal findings in urine
CPT/HCPCS: 81001; 87086